=== PATIENT | male | born 1970 ===

== ENCOUNTER 2016-11-17 08:56 | Emergency (ER) | payer SELFPAY ==
[2016-11-17 09:12] VITALS: O2SAT 100
[2016-11-17] MEDS ORDERED: DiphenhydrAMINE 50 mg/ml Inj IVP STA (10:29)
[2016-11-17] MEDS ORDERED: Sodium Chloride 0.9% 1,000 ML IV ONE (10:30)
--- NOTE | 2016-11-17 10:34 | C.PDOC ---
History Of Present Illness 46 y/o male presents to the ED with complains right sided headache x1 month. Pain comes and goes daily, 5/10. Patient took Tylenol with transient relief. Denies head trauma or fall. Denies neck pain, back pain, visual changes, weakness, numbness, vomiting or any other complaints. Time Seen by Provider: 11/17/16 09:38 Chief Complaint (Nursing): Headache History Per: Patient History/Exam Limitations: no limitations Onset/Duration Of Symptoms: Days, Intermittent Episodes Current Symptoms Are (Timing): Still Present Severity: Moderate Pain Scale Rating Of: 5 Quality: "Pain" Preceeding Symptoms: None Recent travel outside of the [place]: No Past Medical History Reviewed: Historical Data, Nursing Documentation, Vital Signs Vital Signs: Last Vital Signs Temp 98.0 F 11/17/16 12:35 Pulse 60 11/17/16 12:35 Resp 16 11/17/16 12:35 BP 105/73 11/17/16 12:35 Pulse Ox 100 11/17/16 12:54 Family History: States: No Known Family Hx - Social History Hx Alcohol Use: No Hx Substance Use: No - Immunization History Hx Tetanus Toxoid Vaccination: No Hx Influenza Vaccination: Yes Hx Pneumococcal Vaccination: No Review Of Systems Except As Marked, All Systems Reviewed And Found Negative. Constitutional: Negative for: Fever, Chills Eyes: Negative for: Vision Change Gastrointestinal: Negative for: Nausea, Vomiting Musculoskeletal: Negative for: Neck Pain, Back Pain Neurological: Positive for: Headache. Negative for: Weakness, Numbness Physical Exam - Physical Exam Appears: Non-toxic, No Acute Distress Skin: Warm, Dry, No Rash Head: Atraumatic, Normacephalic Eye(s): bilateral: Normal Inspection, PERRL, EOMI Ear(s): Bilateral: Normal Oral Mucosa: Moist Throat: No Erythema, No Exudate Neck: Normal ROM, Supple Chest: Symmetrical Cardiovascular: Rhythm Regular, No Friction Rub, No Murmur Respiratory: Normal Breath Sounds, No Rales, No Rhonchi, No Wheezing Gastrointestinal/Abdominal: Normal Exam, Soft, No Tenderness Back: Normal Inspection, No CVA Tenderness Extremity: Normal ROM, No Swelling Extremity: Bilateral: Atraumatic Neurological/Psych: Oriented x3, Normal Speech, Normal Motor, Normal Sensation Gait: Steady ED Course And Treatment - Laboratory Results Result Diagrams: 11/17/16 10:53 11/17/16 10:53 O2 Sat by Pulse Oximetry: 100 (room air) Pulse Ox Interpretation: Normal - CT Scan/US CT head Other Rad Studies (CT/US): Read By Radiologist, Radiology Report Reviewed CT/US Interpretation: Accession No. : [id number]. Patient Name / ID : MARIANO KRAMER / [id number]. Exam Date : 11/17/2016 11:18:06 ( Approved ). Study Comment : Sex / Age : M / 46Y. Creator : Oscar Stephens. Dictator : Oscar Stephens. Knitting Inspector : Machinist Instructor : Oscar Stephens. Approver2 : Report Date : 11/17/2016 11:24:31. My Comment : . PROCEDURE: CT HEAD WITHOUT CONTRAST. HISTORY: headache x1 month. COMPARISON: None available. TECHNIQUE: Axial computed tomography images were obtained through the head/ brain without intravenous contrast. Radiation dose: Total exam DLP = 905.58 mGy-cm. This CT exam was performed using one or more of the following dose reduction techniques: Automated exposure control, adjustment of the mA and/or kV according to patient size, and/or use of iterative reconstruction technique. FINDINGS: HEMORRHAGE: No intracranial hemorrhage. BRAIN: No mass effect or edema. No atrophy or chronic microvascular ischemic changes. VENTRICLES: Unremarkable. No hydrocephalus. CALVARIUM: Unremarkable. PARANASAL SINUSES: Unremarkable as visualized. No significant inflammatory changes. MASTOID AIR CELLS: Unremarkable as visualized. No inflammatory changes. OTHER FINDINGS: None. IMPRESSION: No evidence of acute intracranial hemorrhage mass effect or midline shift. Medical Decision Making Medical Decision Making: Plan: CT head, labs, IV fluids, benadryl, reglan On re-exam, the patient reports improvement of symptoms. Lungs are CTA, heart is RRR, abdomen is soft, non-tender and patient is tolerating PO well. Patient is ambulatory in the ED with steady gait. Follow up with the medical doctor within 1-2 days, Return if worsened. Disposition - Disposition Referrals: [facility] [Outside] Disposition: HOME/ ROUTINE Disposition Time: 12:30 Condition: GOOD Additional Instructions: Follow up with the medical doctor within 1-2 days, Return if worsened. Prescriptions: Acetaminophen/Butalbital/Caf [Fioricet] 1 tab PO TID PRN #20 tab PRN Reason: Headache Ibuprofen [Motrin] 600 mg PO TID #21 tab Instructions: Migraine Headache (ED) Print Language: WOLOF - Clinical Impression Clinical Impression: Headache, Migraine - PA / [employer] / Resident Statement MD/DO has reviewed & agrees with the documentation as recorded. - Scribe Statement The provider has reviewed the documentation as recorded by the Graceibemeli Monae All medical record entries made by the Scribe were at my direction and personally dictated by me. I have reviewed the chart and agree that the record accurately reflects my personal performance of the history, physical exam, medical decision making, and the department course for this patient. I have also personally directed, reviewed, and agree with the discharge instructions and disposition.
[2016-11-17] MEDS ORDERED: Sodium Chloride 0.9% 1,000 ML ONE (10:55)
[2016-11-17] MEDS ORDERED: DiphenhydrAMINE 50 mg/ml Inj ONE (10:56)
[2016-11-17 11:02] LABS: BASO % 0.7 % (0.0-2.0); EOS # 0.1 K/uL (0.0-0.7); EOS % 1.9 % (0.0-4.0); LYMPH # 2.4 K/uL (1.0-4.3); LYMPH % 42.7 % (20.0-40.0); MEAN CELL VOLUME 90.1 fL (80.0-94.0); MEAN CORPUSCULAR HEMOGLOBIN 29.7 pg (27.0-31.0); MEAN PLATELET VOLUME 8.5 fL (7.2-11.7); MONO # 0.4 K/uL (0.0-0.8); MONO % 6.7 % (0.0-10.0); NRBC % 0.1 % (0.0-2.0); RED CELL DISTRIBUTION WIDTH 14.2 % (11.5-14.5); WHITE BLOOD COUNT 5.7 K/uL (4.8-10.8)
--- NOTE | 2016-11-17 11:26 | CT ---
PROCEDURE: CT HEAD WITHOUT CONTRAST. HISTORY: headache x1 month COMPARISON: None available. TECHNIQUE: Axial computed tomography images were obtained through the head/brain without intravenous contrast. Radiation dose: Total exam DLP = 905.58 mGy-cm. This CT exam was performed using one or more of the following dose reduction techniques: Automated exposure control, adjustment of the mA and/or kV according to patient size, and/or use of iterative reconstruction technique. FINDINGS: HEMORRHAGE: No intracranial hemorrhage. BRAIN: No mass effect or edema. No atrophy or chronic microvascular ischemic changes. VENTRICLES: Unremarkable. No hydrocephalus. CALVARIUM: Unremarkable. PARANASAL SINUSES: Unremarkable as visualized. No significant inflammatory changes. MASTOID AIR CELLS: Unremarkable as visualized. No inflammatory changes. OTHER FINDINGS: None. IMPRESSION: No evidence of acute intracranial hemorrhage mass effect or midline shift.
[2016-11-17 11:27] LABS: CHLORIDE 102 mmol/L (98-107); POTASSIUM 4.1 mmol/L (3.6-5.2); SODIUM 139 mmol/L (132-148)
[2016-11-17 11:29] LABS: GFR AFRICAN-AMERICAN > 60
[2016-11-17 11:30] LABS: ALB/GLOB RATIO 1.3 (1.0-2.1); ALKALINE PHOSPHATASE 65 U/L (38-126); ALT/SGPT 20 U/L (21-72); AST/SGOT 65 U/L (17-59); BILIRUBIN,TOTAL 0.6 mg/dL (0.2-1.3); BLOOD UREA NITROGEN 16 mg/dL (9-20); CALCIUM 8.6 mg/dl (8.6-10.4); CARBON DIOXIDE 24 mmol/L (22-30); GLUCOSE,RANDOM 94 mg/dL (75-110); TOTAL PROTEIN 6.9 g/dL (6.3-8.3)
[2016-11-17 12:35] VITALS: BP 105/73; PULSE 60; RESP 16; TEMP 98
== END 2016-11-17 13:09 | disposition home or self-care (01) ==
LOC: C.ER 08:56
DX: G43.909 Migraine, unspecified, not intractable, without status migrainosus (principal)
CPT/HCPCS: 70450; 80053; 85025; 96361; 96374; 96375; 99284; J1200; J2765; J7040

== ENCOUNTER 2017-06-20 07:04 | Inpatient (IN) | payer OTHER ==
[2017-06-20] MEDS ORDERED: Sodium Chloride 0.9% 1,000 ML IV ONE (07:32)
--- NOTE | 2017-06-20 07:35 | C.PDOC ---
History Of Present Illness Patient reports epigastric/RUQ pain associated with nausea for 1 day. Pain is burning dull on and off. (-) fever, (-) vomiting, (-) diarrhea Time Seen by Provider: 06/20/17 07:19 Chief Complaint (Nursing): Abdominal Pain History Per: Patient History/Exam Limitations: language barrier Onset/Duration Of Symptoms: Days (1) Current Symptoms Are (Timing): Still Present Location Of Pain/Discomfort: Epigastric Radiation Of Pain To:: None Quality Of Discomfort: Dull, Burning Associated Symptoms: Nausea Exacerbating Factors: Food Alleviating Factors: None Last Bowel Movement: Yesterday Recent travel outside of the [place]: No Past Medical History Reviewed: Historical Data, Nursing Documentation, Vital Signs Vital Signs: Last Vital Signs Temp 97.9 F 06/20/17 11:18 Pulse 70 06/20/17 11:18 Resp 20 06/20/17 11:18 BP 127/84 06/20/17 11:18 Pulse Ox 98 06/20/17 11:18 - Medical History PMH: No Chronic Diseases Surgical History: No Surg Hx Family History: States: Unknown Family Hx - Social History Hx Alcohol Use: No Hx Substance Use: No - Immunization History Hx Tetanus Toxoid Vaccination: No Hx Influenza Vaccination: No Hx Pneumococcal Vaccination: No Review Of Systems Constitutional: Negative for: Fever Gastrointestinal: Positive for: Nausea, Abdominal Pain Physical Exam - Physical Exam Appears: Non-toxic, No Acute Distress Skin: Normal Color Oral Mucosa: Moist Cardiovascular: Rhythm Regular Respiratory: Normal Breath Sounds Gastrointestinal/Abdominal: Tenderness (epigastric/RUQ) Extremity: Normal ROM Neurological/Psych: Oriented x3 Gait: Steady ED Course And Treatment - Laboratory Results Result Diagrams: 06/20/17 07:42 06/20/17 07:42 Lab Interpretation: Normal ECG: Interpreted By Ms ECG Rhythm: Sinus Rhythm ECG Interpretation: Normal Rate From EC O2 Sat by Pulse Oximetry: 98 Pulse Ox Interpretation: Normal - CT Scan/US No standard instances CT/US Interpretation: FINDINGS: LIVER: Measures 14.1 cm in length. Normal echogenicity of the liver parenchyma. No mass. No intrahepatic bile duct dilatation. GALLBLADDER: Extensive cholelithiasis obscures the posterior or wall of the gallbladder with the anterior wall appearing upper low limits normal thickness at 2.9 mm. There is no pericholecystic fluid collection or sonographic Yañez's sign elicited by the technologist. No biliary tree dilatation throughout. COMMON BILE DUCT: Measures 3.3 mm. No stones. No dilatation. PANCREAS: The tail of the pancreas is obscured by overlying bowel gas with remainder unremarkable. RIGHT KIDNEY: Measures 10.5 cm in length. Normal echogenicity. No calculus, mass, or hydronephrosis. AORTA: No aneurysmal dilatation. IVC: Unremarkable. OTHER FINDINGS: None . IMPRESSION : Extensive cholelithiasis is seen in the gallbladder lumen with borderline thickening of the gallbladder wall though no pericholecystic fluid collection identified or sonographic Yañez sign. No biliary tree dilatation is grossly appreciated or choledocholithiasis. There is partial imaging of the pancreas as per above. Remainder of the examination is unremarkable. Progress Note: Treated with IVF NSS, pepcid and zofran. Case discussed with rn surgical who evaluated patient and request admission to Dr Magallon Reassessment Condition: Improved - Physician Consult Information Physician Contacted: Ashok Magallon Outcome Of Conversation: admit Medical Decision Making Medical Decision Making: Case discussed with rn surgical who evaluated in ED and request admission to Dr Magallons service Disposition Discussed With .: Ashok Magallon Doctor Will See Patient In The: Hospital - Disposition Disposition: HOSPITALIZED Disposition Time: 10:00 Condition: STABLE - POA Present On Arrival: None - Clinical Impression Clinical Impression: Abdominal pain, Cholelithiasis Decision To Admit - Pt Status Changed To: Hospital Disposition Of: Inpatient - Admit Certification Admit to Inpatient:: After my assessment, the patient will require hospitalization for at least two midnights. This is because of the severity of symptoms shown, intensity of services needed, and/or the medical risk in this patient being treated as an outpatient. - InPatient: Physician Admission Certification:: Cholelithiasis - . Bed Request Type: Regular Admitting Physician: Ashok Magallon Patient Diagnosis: Abdominal pain, Cholelithiasis
[2017-06-20 07:46] LABS: BASO # 0.1 K/uL (0.0-0.2); BASO % 0.9 % (0.0-2.0); EOS # 0.4 K/uL (0.0-0.7); EOS % 5.4 % (0.0-4.0); LYMPH # 2.7 K/uL (1.0-4.3); LYMPH % 40.1 % (20.0-40.0); MEAN CELL VOLUME 90.7 fL (80.0-94.0); MEAN CORPUSCULAR HEMOGLOBIN 30.7 pg (27.0-31.0); MEAN CORPUSCULAR HGB CONC 33.8 g/dL (33.0-37.0); MEAN PLATELET VOLUME 8.3 fL (7.2-11.7); MONO # 0.4 K/uL (0.0-0.8); MONO % 5.3 % (0.0-10.0); NRBC % 0.1 % (0.0-2.0); RED CELL DISTRIBUTION WIDTH 13.7 % (11.5-14.5); WHITE BLOOD COUNT 6.7 K/uL (4.8-10.8)
[2017-06-20] MEDS ORDERED: Sodium Chloride 0.9% 1,000 ML ONE ×2 (07:46→10:36)
[2017-06-20 07:58] LABS: ALKALINE PHOSPHATASE 72 U/L (38-126); ALT/SGPT 37 U/L (21-72); AST/SGOT 19 U/L (17-59); BILIRUBIN,TOTAL 0.4 mg/dL (0.2-1.3); BLOOD UREA NITROGEN 14 mg/dL (9-20); CALCIUM 8.6 mg/dl (8.6-10.4); CARBON DIOXIDE 29 mmol/L (22-30); CHLORIDE 104 mmol/L (98-107); GFR AFRICAN-AMERICAN > 60; GLUCOSE,RANDOM 96 mg/dL (75-110); POTASSIUM 4.2 mmol/L (3.6-5.2); SODIUM 140 mmol/L (132-148); TOTAL PROTEIN 7.7 g/dL (6.3-8.3)
[2017-06-20 08:03] LABS: URINE BILIRUBIN NEGATIVE (NEGATIVE); URINE BLOOD 1+ (NEGATIVE); URINE COLOR Yellow (YELLOW); URINE GLUCOSE (UA) NORMAL (Normal); URINE KETONE NEGATIVE (NEGATIVE); URINE LEUKOCYTE ESTERASE NEG Leu/uL (Negative); URINE PROTEIN NEGATIVE (NEGATIVE); URINE UROBILINOGEN NORMAL mg/dL (0.2-1.0)
[2017-06-20 08:35] LABS: RBC URINE 3 /hpf (0-3)
--- NOTE | 2017-06-20 08:37 | US ---
HISTORY: Pain COMPARISON: None. TECHNIQUE: Sonographic evaluation of the right upper quadrant of the abdomen. FINDINGS: LIVER: Measures 14.1 cm in length. Normal echogenicity of the liver parenchyma. No mass. No intrahepatic bile duct dilatation. GALLBLADDER: Extensive cholelithiasis obscures the posterior or wall of the gallbladder with the anterior wall appearing upper low limits normal thickness at 2.9 mm. There is no pericholecystic fluid collection or sonographic Yañez's sign elicited by the technologist. No biliary tree dilatation throughout. COMMON BILE DUCT: Measures 3.3 mm. No stones. No dilatation. PANCREAS: The tail of the pancreas is obscured by overlying bowel gas with remainder unremarkable. RIGHT KIDNEY: Measures 10.5 cm in length. Normal echogenicity. No calculus, mass, or hydronephrosis. AORTA: No aneurysmal dilatation. IVC: Unremarkable. OTHER FINDINGS: None . IMPRESSION: Extensive cholelithiasis is seen in the gallbladder lumen with borderline thickening of the gallbladder wall though no pericholecystic fluid collection identified or sonographic Yañez sign. No biliary tree dilatation is grossly appreciated or choledocholithiasis. There is partial imaging of the pancreas as per above. Remainder of the examination is unremarkable.
[2017-06-20] MEDS ORDERED: HYDROmorphone 0.5 mg/0.5 ml ISec IVP PRN ×3 (10:00→15:00)
[2017-06-20] MEDS ORDERED: Piperacillin/Tazobact 3.375 gm 100 ML IVPB ONE (10:36)
[2017-06-20] MEDS: Sodium Chloride 0.9% 1,000 ML IV SCH ×2 (10:41→17:43)
[2017-06-20] MEDS: Piperacill/Tazo 3.375gm in Dex 3.375 GM/50 ML BAG IVPB SCH ×3 (10:49→22:03)
[2017-06-20 11:16] LABS: INR 0.9
--- NOTE | 2017-06-20 11:31 | CP.PCM.HP ---
History of Present Illness - History of Present Illness History of Present Illness: General Surgery: Dr Magallon Pt is a 46M with no significant PMH who presents to ED with 1 day of worsening RUQ pain accompanied by nausea and 2 episodes of emesis. Pt reports pain 8/10 and is in the RUQ and radiates to the right shoulder. His emesis was non-bloody , non-billous. Pt states he has had three previous episodes of similar pain over the past year, and was told in another ED he had gastritis. Having regular bowel movements. Pt reports this was his first abdominal US and was never told he had gallstones before. I explained to patient pathology of his disease process. He understands that removal of the gallbladder is the only treatment available, and that his symptoms are likely to return or even worsen if he chooses to go home. Pt understands risks, benefits, and details of the procedure and agrees to have his gallbladder removed today. PMH: none PSH: none NKDA Present on Admission - Present on Admission Any Indicators Present on Admission: No Review of Systems - Review of Systems All systems: reviewed and no additional remarkable complaints except (as per hpi ) Past Patient History - Past Social History Smoking Status: Never Smoked - PSYCHIATRIC Hx Substance Use: No - SURGICAL HISTORY Hx Surgeries: No - ANESTHESIA Hx Anesthesia: No Hx Malignant Hyperthermia: Yes Meds Allergies/Adverse Reactions: Allergies Allergy/AdvReac Type Severity Reaction Status Date / Time No Known Allergies Allergy Verified 11/17/16 09:13 Physical Exam - Constitutional Appears: Non-toxic, No Acute Distress - ENT Exam ENT Exam: Mucous Membranes Moist - Respiratory Exam Respiratory Exam: absent: Accessory Muscle Use, Respiratory Distress - Cardiovascular Exam Cardiovascular Exam: REGULAR RHYTHM. absent: Tachycardia - GI/Abdominal Exam GI & Abdominal Exam: Soft, Tenderness (RUQ). absent: Distended, Firm, Guarding , Hernia, Mass, Pulsatile Mass - Extremities Exam Extremities exam: Negative for: pedal edema - Neurological Exam Neurological exam: Alert, Oriented x3 - Psychiatric Exam Psychiatric exam: Normal Affect, Normal Mood - Skin Skin Exam: Normal Color, Warm Results - Vital Signs Recent Vital Signs: Last Vital Signs Temp 97.9 F 06/20/17 11:18 Pulse 70 06/20/17 11:18 Resp 20 06/20/17 11:18 BP 127/84 06/20/17 11:18 Pulse Ox 98 06/20/17 11:18 - Labs Result Diagrams: 06/20/17 07:42 06/20/17 07:42 Labs: Laboratory Results - last 24 hr 06/20/17 06/20/17 06/20/17 07:42 07:42 07:42 WBC 6.7 RBC 4.96 Hgb 15.2 Hct 45.0 MCV 90.7 MCH 30.7 MCHC 33.8 RDW 13.7 Plt Count 295 MPV 8.3 Neut % (Auto) 48.3 L Lymph % (Auto) 40.1 H [place] % (Auto) 5.3 Eos % (Auto) 5.4 H Baso % (Auto) 0.9 Neut # 3.2 Lymph # 2.7 [place] # 0.4 Eos # 0.4 Baso # 0.1 PT INR Sodium 140 Potassium 4.2 Chloride 104 Carbon Dioxide 29 Anion Gap 11 BUN 14 Creatinine 1.0 Est GFR ( Amer) > 60 Est GFR (Non-Af Amer) > 60 Random Glucose 96 Calcium 8.6 Total Bilirubin 0.4 AST 19 ALT 37 Alkaline Phosphatase 72 Total Protein 7.7 Albumin 3.8 Globulin 3.9 Albumin/Globulin Ratio 1.0 Lipase 141 Urine Color Yellow Urine Clarity Clear Urine pH 6.0 Ur Specific [place] 1.017 Urine Protein Negative Urine Glucose (UA) Normal Urine Ketones Negative Urine Blood 1+ H Urine Nitrate Negative Urine Bilirubin Negative Urine Urobilinogen Normal Ur Leukocyte Esterase Neg Urine RBC (Auto) 3 06/20/17 11:00 WBC RBC Hgb Hct MCV MCH MCHC RDW Plt Count MPV Neut % (Auto) Lymph % (Auto) [place] % (Auto) Eos % (Auto) Baso % (Auto) Neut # Lymph # [place] # Eos # Baso # PT 10.7 INR 0.9 Sodium Potassium Chloride Carbon Dioxide Anion Gap BUN Creatinine Est GFR ( Amer) Est GFR (Non-Af Amer) Random Glucose Calcium Total Bilirubin AST ALT Alkaline Phosphatase Total Protein Albumin Globulin Albumin/Globulin Ratio Lipase Urine Color Urine Clarity Urine pH Ur Specific [place] Urine Protein Urine Glucose (UA) Urine Ketones Urine Blood Urine Nitrate Urine Bilirubin Urine Urobilinogen Ur Leukocyte Esterase Urine RBC (Auto) Assessment & Plan - Assessment and Plan (Free Text) Assessment: 46M with cholecystitis Plan: Admit NPO IV abx pain meds/anti-emetics PRN OR today for lap servando d/w Dr Naun Yu, PGY3
[2017-06-20] MEDS ORDERED: Lactated Ringer's 1,000 ML IV ONE ×2 (13:20→14:20)
[2017-06-20] MEDS ORDERED: Midazolam 2 MG/2 ML VIAL ONE (13:23)
[2017-06-20] MEDS ORDERED: Propofol 10 mg/ml Inj (20 ML) ONE (13:23)
[2017-06-20] MEDS ORDERED: Neostigmine Methylsulfate 3mg/3ml Syringe IV ONE (13:55)
--- NOTE | 2017-06-20 14:59 | PCM.SURG1 ---
Surgeon's Initial Post Op Note - Surgeon's Notes Surgeon: Dr. Magallon Demand Generation Manager: Dr. Yu PGY3, Dr. Hannah PGY2 Type of Anesthesia: General Endo Pre-Operative Diagnosis: cholelithiaisis Operative Findings: see dictation Post-Operative Diagnosis: same Operation Performed: laparoscopic cholecystectomy Specimen/Specimens Removed: gallbladder Estimated Blood Loss: EBL {In ML}: 10 Blood Products Given: N/A Drains Used: No Drains Post-Op Condition: Good Date of Surgery/Procedure: 06/20/17 Time of Surgery/Procedure: 13:20
[2017-06-21] MEDS: Sodium Chloride 0.9% 1,000 ML IV SCH ×2 (00:51→02:15)
[2017-06-21] MEDS: Piperacill/Tazo 3.375gm in Dex 3.375 GM/50 ML BAG IVPB SCH ×3 (05:25→16:10)
--- NOTE | 2017-06-21 06:17 | CP.PCM.DIS ---
Provider - Provider Date of Admission: 06/20/17 09:57 Attending physician: Ashok Magallon MD Time Spent in preparation of Discharge (in minutes): 5 Hospital Course - Lab Results Lab Results: Most Recent Lab Values WBC 6.7 K/uL (4.8-10.8) 06/20/17 07:42 RBC 4.96 Mil/uL (4.40-5.90) 06/20/17 07:42 Hgb 15.2 g/dL (12.0-18.0) 06/20/17 07:42 Hct 45.0 % (35.0-51.0) 06/20/17 07:42 MCV 90.7 fL (80.0-94.0) 06/20/17 07:42 MCH 30.7 pg (27.0-31.0) 06/20/17 07:42 MCHC 33.8 g/dL (33.0-37.0) 06/20/17 07:42 RDW 13.7 % (11.5-14.5) 06/20/17 07:42 Plt Count 295 K/uL (130-400) 06/20/17 07:42 MPV 8.3 fL (7.2-11.7) 06/20/17 07:42 Neut % (Auto) 48.3 % (50.0-75.0) L 06/20/17 07:42 Lymph % (Auto) 40.1 % (20.0-40.0) H 06/20/17 07:42 [place] % (Auto) 5.3 % (0.0-10.0) 06/20/17 07:42 Eos % (Auto) 5.4 % (0.0-4.0) H 06/20/17 07:42 Baso % (Auto) 0.9 % (0.0-2.0) 06/20/17 07:42 Neut # 3.2 K/uL (1.8-7.0) 06/20/17 07:42 Lymph # 2.7 K/uL (1.0-4.3) 06/20/17 07:42 [place] # 0.4 K/uL (0.0-0.8) 06/20/17 07:42 Eos # 0.4 K/uL (0.0-0.7) 06/20/17 07:42 Baso # 0.1 K/uL (0.0-0.2) 06/20/17 07:42 PT 10.7 SECONDS (9.7-12.2) 06/20/17 11:00 INR 0.9 06/20/17 11:00 Sodium 140 mmol/L (132-148) 06/20/17 07:42 Potassium 4.2 mmol/L (3.6-5.2) 06/20/17 07:42 Chloride 104 mmol/L (98-107) 06/20/17 07:42 Carbon Dioxide 29 mmol/L (22-30) 06/20/17 07:42 Anion Gap 11 (10-20) 06/20/17 07:42 BUN 14 mg/dL (9-20) 06/20/17 07:42 Creatinine 1.0 mg/dL (0.8-1.5) 06/20/17 07:42 Est GFR ( Amer) > 60 06/20/17 07:42 Est GFR (Non-Af Amer) > 60 06/20/17 07:42 Random Glucose 96 mg/dL (75-110) 06/20/17 07:42 Calcium 8.6 mg/dl (8.6-10.4) 06/20/17 07:42 Total Bilirubin 0.4 mg/dL (0.2-1.3) 06/20/17 07:42 AST 19 U/L (17-59) 06/20/17 07:42 ALT 37 U/L (21-72) 06/20/17 07:42 Alkaline Phosphatase 72 U/L (38-126) 06/20/17 07:42 Total Protein 7.7 g/dL (6.3-8.3) 06/20/17 07:42 Albumin 3.8 g/dL (3.5-5.0) 06/20/17 07:42 Globulin 3.9 gm/dL (2.2-3.9) 06/20/17 07:42 Albumin/Globulin Ratio 1.0 (1.0-2.1) 06/20/17 07:42 Lipase 141 U/L (23-300) 06/20/17 07:42 Urine Color Yellow (YELLOW) 06/20/17 07:42 Urine Clarity Clear (Clear) 06/20/17 07:42 Urine pH 6.0 (5.0-8.0) 06/20/17 07:42 Ur Specific [place] 1.017 (1.003-1.030) 06/20/17 07:42 Urine Protein Negative mg/dL (NEGATIVE) 06/20/17 07:42 Urine Glucose (UA) Normal mg/dL (Normal) 06/20/17 07:42 Urine Ketones Negative mg/dL (NEGATIVE) 06/20/17 07:42 Urine Blood 1+ (NEGATIVE) H 06/20/17 07:42 Urine Nitrate Negative (NEGATIVE) 06/20/17 07:42 Urine Bilirubin Negative (NEGATIVE) 06/20/17 07:42 Urine Urobilinogen Normal mg/dL (0.2-1.0) 06/20/17 07:42 Ur Leukocyte Esterase Neg [place]/uL (Negative) 06/20/17 07:42 Urine RBC (Auto) 3 /hpf (0-3) 06/20/17 07:42 - Hospital Course Hospital Course: PT is a 46M who presented to ED with RUQ pain w/ N/V. Pt found to have significant cholelithiasis with signs of cholecystitis. Taken to OR for laparoscopic cholecystectomy. Tolerated surgery well. Kept overnight for monitoring. Tolerating diet. Will be d/c today with rx for pain medicine and follow up in 1 week. Discharge Exam - Head Exam Head Exam: NORMOCEPHALIC - Respiratory Exam Respiratory Exam: NORMAL BREATHING PATTERN. absent: Accessory Muscle Use, Respiratory Distress - GI/Abdominal Exam GI & Abdominal Exam: Soft, Tenderness (ppost-op) Additional comments: dressing c/d/i - Neurological Exam Neurological exam: Alert, Oriented x3 - Psychiatric Exam Psychiatric exam: Normal Affect, Normal Mood Discharge Plan - Follow Up Plan Condition: STABLE Disposition: HOME/ ROUTINE Additional Instructions: puede ducharse manana 06/22 pooja la gasa 06/22 sintia a la oficine de [address] Maglalon en alli semana
[2017-06-21] MEDS: Oxycodone/Acetaminophen 5/325 mg Tab PO PRN ×2 (07:24→16:08)
[2017-06-21 08:47] VITALS: RESP 20
[2017-06-21] MEDS ORDERED: Influenza Vaccine 60 mcg/0.5 mL SYR (4YR UP) IM ONE (13:30)
[2017-06-21] MEDS ORDERED: Pneumococcal 23-Valent Vaccine IM ONE (13:30)
--- NOTE | 2017-06-21 14:42 | OP ---
PROCEDURE DATE: 06/20/2017 PREOPERATIVE DIAGNOSIS: Cholelithiasis. POSTOPERATIVE DIAGNOSIS: Cholelithiasis. PROCEDURE: Laparoscopic cholecystectomy. SURGEON: Ashok Magallon MD. MACHINERY CLEANER: Dr. Yu and Dr. Hannah. TYPE OF ANESTHESIA: General. ANESTHESIA ADMINISTERED BY: Fabio Tolentino MD. DESCRIPTION OF PROCEDURE: With the patient in the supine position under adequate general anesthesia, the abdomen was prepped and draped in the usual sterile manner. Veress needle puncture was performed at the umbilicus with insufflation to 15 cm water pressure of CO2 and a 10 mm laparoscopic trocar was inserted via a supraumbilical incision. Under direct vision, additional trocars were inserted in the epigastrium and right costal margin. The gallbladder was identified. It was not acutely inflamed. The gallbladder fundus was grasped and elevated. The infundibulum was exposed after peeling away a quantity of fatty overlying tissue and the infundibulum was grasped and retracted laterally. The cystic duct was identified and cleared down towards the junction with the common bile duct. The cystic duct was visualized anteriorly and posteriorly. The cystic duct was then triply clipped and divided. The cystic artery was similarly identified and dissected. The cystic artery was triply clipped and divided and the gallbladder was dissected free of the liver bed using electrocautery. The liver bed was inspected for hemostasis and the dissection was completed. The gallbladder was placed in a specimen retrieval bag and removed via the umbilical port site. It was noted to contain large stones. The right upper quadrant was irrigated and suctioned. The pneumoperitoneum was released and the trocars were removed. The umbilical port site was closed with a [id number] fascial suture of 0 Vicryl. All incisions were closed with 4-0 Monocryl subcuticular sutures and Steri-Strips. Dry sterile dressings were applied. The patient tolerated the procedure well and transferred to recovery room in stable condition. Estimated blood loss for the procedure was 10 mL. Ashok Magallon MD
[2017-06-21 17:31] VITALS: BP 127/88; PULSE 100; TEMP 98.1; O2SAT 97
--- NOTE | 2017-06-25 03:26 | CARD ---
APPROVED REPORT EKG Measurement Heart [id number] CO [id number] <Conclusion> Normal sinus rhythm Early repolarization Normal ECG
== END 2017-06-21 18:02 | disposition home or self-care (01) | DRG 494 ==
LOC: C.ER 07:04 → C.9E 09:57 → C.3T 10:39
PROVIDERS: ADMIT Specialist; ATTEND Specialist
PROC: 0FT44ZZ Resection of Gallbladder, Percutaneous Endoscopic Approach (ICD-10-PCS; principal; 2017-06-21)
DX: K80.10 Calculus of gallbladder with chronic cholecystitis without obstruction (principal)